=== PATIENT | female | born 1965 | race Caucasian/White ===

== ENCOUNTER 2020-08-30 18:00 | Emergency (ER) | payer MEDICAID ==
--- NOTE | 2020-08-30 18:23 | ER Document Report ---
ED Medical Screen (RME) - General Chief Complaint: Knee Pain Stated Complaint: KNEE PAIN Time Seen by Provider: 08/30/20 18:09 Mode of Arrival: Wheelchair Notes: HPI; 55-year-old female presents to the emergency room via EMS complaining of right knee pain. Patient states she was walking she has sudden sharp stabbing pain in her right knee causing her to fall and unable to ambulate. Patient recently traveled here from [place] 2 days ago via bus. States she was on a bus for 2 and half days with multiple stops. Denies any history of DVTs. Complains of pain and swelling behind the right knee. Patient also states that when she was unable to ambulate after the fall she urinated on herself. PE: Alert and oriented x3. Mild distress noted. Lungs: Clear to auscultation without rales, rhonchi, wheezes. Heart: Regular rate rhythm without murmurs, rubs, gallops. Positive Homans on the right. Pain and swelling behind the right knee. I have greeted and performed a rapid initial assessment of this patient. A comprehensive ED assessment and evaluation of the patient, analysis of test results and completion of the medical decision making process will be conducted by additional ED providers. I have specifically instructed the patient or family members with the patient to immediately return to any nursing staff should anything change in the patient's condition or with their chief complaint. TRAVEL OUTSIDE OF THE [place] IN LAST 30 DAYS: No - Related Data Allergies/Adverse Reactions: amoxicillin [From Augmentin] Allergy (Verified 08/30/20 18:10) clavulanic acid [From Augmentin] Allergy (Verified 08/30/20 18:10) cyclobenzaprine [From Flexeril] Allergy (Verified 08/30/20 18:10) metformin Allergy (Verified 08/30/20 18:10) morphine Allergy (Verified 08/30/20 18:10) Sulfa (Sulfonamide Antibiotics) Allergy (Verified 08/30/20 18:10) Home Medications: lisinopril Past Medical History - Social History Chew tobacco use (# tins/day): No Frequency of alcohol use: None Drug Abuse: None Physical Exam - Vital signs Vitals: Temp Pulse Resp BP Pulse Ox 98.2 F 86 16 176/82 H 97 08/30/20 18:07 08/30/20 18:07 08/30/20 18:07 08/30/20 18:07 08/30/20 18:07 Course - Vital Signs Vital signs: Temp Pulse Resp BP Pulse Ox 98.2 F 86 16 176/82 H 97 08/30/20 18:10 08/30/20 18:07 08/30/20 18:07 08/30/20 18:07 08/30/20 18:07
--- NOTE | 2020-08-30 19:55 | RADIOLOGY REPORT (SQ) ---
EXAM DESCRIPTION: VENOUS UNILATERAL LOWER IMAGES COMPLETED DATE/TIME: 08/30/2020 7:45 pm REASON FOR STUDY: right leg pain COMPARISON: None. TECHNIQUE: Dynamic and static orlando scale and color images acquired of the right leg venous system. S elected spectral images acquired with additional compression and augmentation maneuvers. The contrala teral common femoral vein and saphenofemoral junction were also imaged. Images stored on PACS. LIMITATIONS: None. FINDINGS: COMMON FEMORAL: Normal phasicity, compression and augmentation. No visualized echogenic ma terial on orlando scale. No defects on color images. FEMORAL: Normal compression and augmentation. No visualized echogenic material on orlando scale. No defe cts on color images. POPLITEAL: Normal compression, augmentation. No visualized echogenic material on orlando scale. No defec ts on color images. CALF VESSELS: Normal compression, augmentation. No visualized echogenic material on orlando scale. No de fects on color images. GSV and SSV: Normal compression, augmentation. No visualized echogenic material on orlando scale. No def ects on color images. ANY DEEP VENOUS INSUFFICIENCY: Not evaluated. ANY EVIDENCE OF POPLITEAL CYST: No. OTHER: No other significant finding. CONTRALATERAL COMMON FEMORAL VEIN AND SAPHENOFEMORAL JUNCTION: Normal phasicity, compression and augmentation. No visualized echogenic material on orlando scale. No de fects on color images. IMPRESSION: NO EVIDENCE DVT OR SVT IN THE RIGHT LEG. TECHNICAL DOCUMENTATION: JOB ID: [id number] [employer]- All Rights Reserved Reading location - IP/workstation name: [email or web address]
--- NOTE | 2020-08-30 20:38 | RADIOLOGY REPORT (SQ) ---
EXAM DESCRIPTION: X-ray, four views of the right knee CLINICAL HISTORY: 55 years Female, pain COMPARISON: None. FINDINGS: Joint space is preserved. There is mild osseous spurring at the medial and lateral compartment. A knee effusion is identified. No fracture is seen. No radiopaque foreign body in the soft tissues. IMPRESSION: Large knee effusion. Subtle degenerative arthritis. No fracture.
[2020-08-30] MEDS ORDERED: IBUPROFEN 600 MG TABLET PO ONE (22:59)
[2020-08-31 00:35] VITALS: BP 150/74
== END 2020-08-31 00:36 | disposition home or self-care (01) ==
LOC: ER 18:00
DX: M25.561 Pain in right knee (principal); Z88.0 Allergy status to penicillin
CPT/HCPCS: 99284; 93971; 73564; J3490